=== PATIENT | female | born 1985 | race Caucasian/White ===

== ENCOUNTER → 2017-06-20 | Day surgery (SDC) | payer OTHER ==
[2017-06-05 14:29] VITALS: BMI 17.0
--- NOTE | 2017-06-05 15:15 | PAT Medication Instructions ---
Service Date Jun 05, 2017. Current Home Medication List Albuterol Hfa (Ventolin Hfa), 2-4 PUFFS INH Q6H PRN for Shortness of Breath Gabapentin (Neurontin), 100 MG PO BID Hydrocodon/Acetaminophen 7.5MG/300MG (Vicodin Es (7.5MG/300MG)), 1 TAB PO Q6 PRN for Pain Ibuprofen (Motrin), 400 MG PO Q6H PRN for Pain Ketorolac Tromethamine (Toradol), 10 MG PO TID PRN for Pain Midodrine (Midodrine HCl), 1 TAB PO BID Multiple Vitamin (Multi Vitamin), 1 TAB PO qa Naproxen (Aleve), 220 MG PO DAILY PRN for Pain Nitrofurantoin Monohyd Macrocr (Macrobid), 100 MG PO BID Pantoprazole (Protonix), 40 MG PO QAM Saccharomyces Boulardii (Probiotic), 2 TAB PO QAM Sertraline (Zoloft), 50 MG PO QAM Tamsulosin HCl (Tamsulosin HCl), 1 TAB PO HS Topiramate (Topamax), 150 MG PO BID Valacyclovir (Valtrex), 1 TAB PO QAM Medication Instructions For Your Scheduled Surgery - Check with surgeon for instructions: Ibuprofen (Motrin), 400 MG PO Q6H PRN for Pain Naproxen (Aleve), 220 MG PO DAILY PRN for Pain - Hold the following medications the morning of surgery: Saccharomyces Boulardii (Probiotic), 2 TAB PO QAM Multiple Vitamin (Multi Vitamin), 1 TAB PO qa - Take the following medications the morning of surgery with a sip of water: Topiramate (Topamax), 150 MG PO BID Valacyclovir (Valtrex), 1 TAB PO QAM Sertraline (Zoloft), 50 MG PO QAM Pantoprazole (Protonix), 40 MG PO QAM Nitrofurantoin Monohyd Macrocr (Macrobid), 100 MG PO BID. Hydrocodon/Acetaminophen 7.5MG/300MG (Vicodin Es (7.5MG/300MG)), 1 TAB PO Q6 PRN for Pain (okay to take up to 4 hours prior to surgery if needed) Albuterol Hfa (Ventolin Hfa), 2-4 PUFFS INH Q6H PRN for Shortness of Breath (if needed) Gabapentin (Neurontin), 100 MG PO BID Ketorolac Tromethamine (Toradol), 10 MG PO TID PRN for Pain (okay to take up to 4 hours prior to surgery if needed) Midodrine HCl - Take the following medications as scheduled the night before surgery: Topiramate (Topamax), 150 MG PO BID Tamsulosin HCl (Tamsulosin HCl), 1 TAB PO HS Nitrofurantoin Monohyd Macrocr (Macrobid), 100 MG PO BID Hydrocodon/Acetaminophen 7.5MG/300MG (Vicodin Es (7.5MG/300MG)), 1 TAB PO Q6 PRN for Pain i(if needed) Albuterol Hfa (Ventolin Hfa), 2-4 PUFFS INH Q6H PRN for Shortness of Breath (if needed) Gabapentin (Neurontin), 100 MG PO BID Ketorolac Tromethamine (Toradol), 10 MG PO TID PRN for Pain (if needed) Midodrine HCl If you have any questions please call us at [phone] or [phone] or [phone]
--- NOTE | 2017-06-05 16:08 | DIAGNOSTIC IMAGING REPORT ---
CHEST PREADMISSION(PA/LAT) CLINICAL HISTORY: Preoperative evaluation. COMPARISON STUDY: No previous studies for comparison. FINDINGS: No consolidation is identified. Pulmonary vascularity is normal. Cardiomediastinal silhouette is normal. There is no pneumothorax or pleural effusion. IMPRESSION: No acute cardiopulmonary findings. Electronically signed by: Felipe Ponce M.D. 06/05/2017 4:07 PM Dictated Date/Time: 06/05/2017 4:06 PM
[~2017-06-20] VITALS: Ht 157.5 cm; Wt 43.4 kg
[~2017-06-20] MED LIST: ACETAMINOPHEN 325 MG TAB PO PRN; ATROPINE SULFATE 0.1 MG/ML 5ML SYR IV PRN; CEFAZOLIN 2000 MG/60 ML D5W IV SCH; CIPR-255 PO; CONRAY 30% 150ML BOTTLE ONE; EpHEDrine SULFATE INJ 50 MG/ML AMP IV PRN; FENTANYL CITRATE INJ 50 MCG/1 ML 2 ML VIAL IV PRN; FLM4 PO; GABA-112 PO; HYDR-3714 PO; HYDROCODONE/ACETAMOPHEN 5/325MG TAB PO PRN; IBUP-1459 PO; KETO10TA PO; LACTATED RINGER'S 1000ML 1,000 ML IV SCH; MULT-1027 PO; NAPR1TAB9 PO; NITR-5 PO; ONDANSETRON INJ 2 MG/ML 2 ML VIAL IV PRN; OXYC-57 PO; OXYC1TAB3 PO; PANT40TA PO; PRMT25 PO; SACC250C11 PO; SERT50TA PO; SODIUM CHLORIDE 0.9% 1000ML 1,000 ML IV SCH; TAMSULOSIN HCL 0.4 MG CAP PO ONE; TOPI100T20 PO; VALA500T60 PO; VNTHFA/IN INH
[2017-06-20 06:31] VITALS: BP 92/56; PULSE 53; TEMP 36.7; O2SAT 100; Ht 157.5 cm; Wt 43.4 kg
--- NOTE | 2017-06-20 07:27 | History & Physical Bridge Note ---
H&P Re-Evaluation Bridge Note: I have examined the patient, reviewed the History & Physical and in the interval since the performance of the History & Physical I have noted the following changes of clinical significance: No changes noted
--- NOTE | 2017-06-20 08:34 | Discharge Instructions ---
Discharge Instructions Date of Service Jun 20, 2017. Admission Reason for Admission: Stones Discharge Discharge Diagnosis / Problem: stones Discharge Goals Goal(s): Decrease discomfort, Improve function, Increase independence, Improve disease control, Prevent Disease Progression Activity Recommendations Activity Limitations: resume your previous activity Lifting Limitations: none Exercise/Sports Limitations: none May Resume Sexual Activity: when tolerated Shower/Bathe: no limitations Driving or Machine Use: resume 1 day after discharge . Instructions / Follow-Up Instructions / Follow-Up Dr. Meraz's office will contact you to schedule your next procedure. Discharge Diet Recommended Diet: Regular Diet Procedures Procedures Performed: Cystoscopy, left ureteral dilation, attempted left Ureteroscopy, Retrograde pyelogram, stent placement Pending Studies Studies pending at discharge: no Medical Emergencies . Who to Call and When: Medical Emergencies: If at any time you feel your situation is an emergency, please call 911 immediately. . Non-Emergent Contact Non-Emergency issues call your: Urologist Call Non-Emergent contact if: you have a fever, temperature is above 101.5, your pain is not controlled, your pain is worsening . . "Provider Documentation" section prepared by Foreign Mccann. . VTE Core Measure Inpt VTE Proph given/why not?: Treatment not indicated [place] Drug Monitoring Program Drug Monitoring Findings: system not responding when I attempted to evaluate her medication history
--- NOTE | 2017-06-20 09:01 | [facility] Operative Report ---
Operative Report Operative Date Jun 20, 2017. Pre-Operative Diagnosis nephrolithiasis Post-Operative Diagnosis nephrolithiasis Procedure(s) Performed Cystoscopy, left ureteral dilation, attempted left Ureteroscopy, Retrograde pyelogram, stent placement 1Er40pm Surgeon Dr. Nabeel Meraz Software Implementation Project Manager Surgeon(s) none Estimated Blood Loss 0mL Findings Very narrow distal left ureter - no definitive fluoroscopic findings of a ureteral stone Specimens none per surgeon Drains [id number] Anesthesia Gen Complication(s) None Disposition Recovery Room / PACU Indications Symptomatic L ureteral and renal stones Description of Procedure Patient was identified in the preoperative holding area, appropriate informed consent reviewed and completed and the patient was transported to the operating suite. Upon arrival she received appropriate preoperative antibiotics in the form of Ancef. Adequate general anesthesia was achieved and she was placed in dorsal lithotomy position where she was sterilely prepped and draped in standard fashion. I begin the case by attempting to pass a 22 Nigerian cystoscope with 30 lens. Unfortunately her urethra would not accommodate this and required gentle dilation to facilitate the scope passage. Full bladder evaluation was then carried out. No evidence of tumor or other abnormality. Ureteral orifices were in orthotopic position. In turn my attention then to the left ureteral orifice. I cannulated with a sensor wire was advanced the kidney without difficulty. I then attempted to pass a 10 Nigerian double-lumen catheter. I was able to pass is approximately 3 cm into the ureter without difficulty before feeling resistance. There is no fluoroscopic findings suggestive stone in this location. I placed a second wire was advanced without difficulty. I then attempted to pass a semirigid ureteroscope. I was able to guide this to the same area resistance. Unfortunately I could not identify a stone in this area, but it appeared to have simple narrowing of the ureter. After I was unable to pass the semirigid scope, through this and attempted to pass a flexible scope. This also was unsuccessful with restriction at the same point. Before boarding the case, I attempted to pass a balloon dilator and gently dilated this area while simultaneously watching under fluoroscopic guidance to ensure I was not dilating stone. After the dilation, I attempted to repassed scope and met resistance in the same location. At that time I elected to place a stent and temporarily abort this case with a return in 1-2 weeks for final treatment. A 6 Nigerian by 24 cm double-J ureteral stent was placed without difficulty. There was a good curl in the kidney as well as the bladder. Bladder was decompressed and the patient reversed from anesthesia and taken to the PACU in stable condition. I attest to the content of the Intraoperative Record and any orders documented therein. Any exceptions are noted below.
--- NOTE | 2017-06-20 09:23 | Anesthesiology Progress Note ---
Anesthesia Post Op Note Date & Time Jun 20, 2017 at 09:23 Vital Signs Pain Intensity: 0 Vital Signs Past 12 Hours Date Time Temp Pulse Resp B/P (MAP) Pulse Ox O2 Delivery O2 Flow Rate FiO2 06/20/17 09:15 36.2 90 16 104/68 99 Room Air 06/20/17 09:05 36.2 70 16 112/68 99 Room Air 06/20/17 08:55 71 16 99/66 100 Oxymask 10 06/20/17 08:45 86 16 111/71 100 Oxymask 10 06/20/17 08:35 36.3 62 16 106/63 100 Oxymask 10 06/20/17 06:31 36.7 53 18 92/56 (68) 100 Room Air Notes Mental Status: alert / awake / arousable, participated in evaluation Pt Amnestic to Procedure: Yes Nausea / Vomiting: adequately controlled Pain: adequately controlled Airway Patency, RR, SpO2: stable & adequate BP & HR: stable & adequate Hydration State: stable & adequate Anesthetic Complications: no major complications apparent
[2017-06-20 09:25] VITALS: BP 112/70; PULSE 69; TEMP 37.1; O2SAT 99
[2017-06-20 09:55] VITALS: BP 113/63; PULSE 74; TEMP 36.5; O2SAT 100
[2017-06-20 10:25] VITALS: BP 109/60; PULSE 82; TEMP 36.5; O2SAT 97
== END | disposition home or self-care (01) ==
LOC: C.ACU 06-05 13:35
PROVIDERS: ATTEND Urology
DX: N20.1 Calculus of ureter (principal); N20.0 Calculus of kidney; J45.909 Unspecified asthma, uncomplicated; F17.200 Nicotine dependence, unspecified, uncomplicated; Z82.49 Family history of ischemic heart disease and other diseases of the circulatory system; Z83.3 Family history of diabetes mellitus; Z80.1 Family history of malignant neoplasm of trachea, bronchus and lung; Z79.899 Other long term (current) drug therapy; Z01.818 Encounter for other preprocedural examination

== ENCOUNTER 2017-06-22 12:52 | Emergency (ER) | payer OTHER ==
[~2017-06-22] VITALS: Ht 157.5 cm; Wt 42.8 kg
[~2017-06-22 12:52] MED LIST changes: -ACETAMINOPHEN 325 MG TAB PO PRN; -ATROPINE SULFATE 0.1 MG/ML 5ML SYR IV PRN; -CEFAZOLIN 2000 MG/60 ML D5W IV SCH; -CONRAY 30% 150ML BOTTLE ONE; -EpHEDrine SULFATE INJ 50 MG/ML AMP IV PRN; -FENTANYL CITRATE INJ 50 MCG/1 ML 2 ML VIAL IV PRN; -HYDROCODONE/ACETAMOPHEN 5/325MG TAB PO PRN; -LACTATED RINGER'S 1000ML 1,000 ML IV SCH; -NITR-5 PO; -ONDANSETRON INJ 2 MG/ML 2 ML VIAL IV PRN; -OXYC-57 PO; -OXYC1TAB3 PO; -SODIUM CHLORIDE 0.9% 1000ML 1,000 ML IV SCH; -TAMSULOSIN HCL 0.4 MG CAP PO ONE
[2017-06-22 13:03] VITALS: TEMP 36.7; Ht 157.5 cm; Wt 42.8 kg
[2017-06-22] MEDS ORDERED: SODIUM CHLORIDE 0.9% 1000ML 1,000 ML IV STA (13:19)
[2017-06-22] MEDS ORDERED: MoRPHine SULFATE 4 MG/ML 1 ML CARP\\VIAL IV STA ×2 (13:19→15:31)
[2017-06-22] MEDS ORDERED: ONDANSETRON INJ 2 MG/ML 2 ML VIAL IV STA (13:19)
--- NOTE | 2017-06-22 13:53 | EMERGENCY ROOM VISIT NOTE ---
History First contact with patient: 13:10 Chief Complaint: KIDNEY STONE Stated Complaint: KIDNEY STONES History of Present Illness The patient is a 32 year old female who presents to the Emergency Room via private vehicle accompanied by mother with complaints of "kidney stone". The patient states that she has had left flank pain, and had a stent placed in her left ureter on Monday. She states that since then she has had left flank pain , but now has acutely worsened, and she has bright red blood in her urine. She rates the left flank and left abdominal pain as an 8-9/10. It is been worsening since Monday. She notes that Dr. Meraz performed the stent placement. She states that she has another surgery scheduled for this Monday for further evaluation and management. She denies any fevers, chills, chance of . Review of Systems A complete 10-point Review of Systems was discussed with the patient, with pertinent positives and negatives listed in the History of Present Illness. All remaining Review of Systems questions can be considered negative unless otherwise specified. Past Medical/Surgical History Renal calculi, tubal ligation Family History No pertinent. Social History Smoking Status: Current Every Day Smoker Pt. lives locally Current/Historical Medications Scheduled Ciprofloxacin Hcl (Cipro), 500 MG PO BID Gabapentin (Neurontin), 100 MG PO BID Midodrine (Midodrine HCl), 1 TAB PO BID Multiple Vitamin (Multi Vitamin), 1 TAB PO qa Pantoprazole (Protonix), 40 MG PO QAM Saccharomyces Boulardii (Probiotic), 2 TAB PO QAM Sertraline (Zoloft), 50 MG PO QAM Tamsulosin HCl (Tamsulosin HCl), 1 TAB PO HS Topiramate (Topamax), 150 MG PO BID Valacyclovir (Valtrex), 1 TAB PO QAM Scheduled PRN Albuterol Hfa (Ventolin Hfa), 2-4 PUFFS INH Q6H PRN for Shortness of Breath Hydrocodon/Acetaminophen 7.5MG/300MG (Vicodin Es (7.5MG/300MG)), 1 TAB PO Q6 PRN for Pain Ibuprofen (Motrin), 400 MG PO Q6H PRN for Pain Naproxen (Aleve), 220 MG PO DAILY PRN for Pain Physical Exam Vital Signs Date Time Temp Pulse Resp B/P (MAP) Pulse Ox O2 Delivery O2 Flow Rate FiO2 10/5/17 15:34 72 16 93/65 100 Room Air 06/22/17 14:26 95 Room Air 06/22/17 14:01 65 06/22/17 13:03 36.7 87 18 111/73 99 Room Air Physical Exam VITAL SIGNS - Vital signs and nursing notes were reviewed. Stable. GENERAL - 32-year-old female appearing her stated age who is in no acute distress. Communicates well with provider and answers questions appropriately. SKIN - Without rashes. No petechial rashes. HEAD - NC/AT. EYES - Sclera anicteric. EARS - No deformities of external structures noted on gross examination bilaterally. NOSE - Midline and without cyanosis. No epistaxis or purulent drainage noted. MOUTH/OROPHARYNX - Without perioral cyanosis. LUNGS - Chest wall symmetric without accessory muscle use, intercostals retractions, or central cyanosis. Normal vesicular breath sounds CTA B/L. No wheezes, rales, or rhonchi appreciated. CARDIAC - RRR with S1/S2. No murmur, rubs, or gallops appreciated. ABDOMEN - Abdominal contour normal without pulsations or visible masses. BS normoactive all four quadrants. LEFT CVA TENDERNESS and left lower quadrant. No palpable masses, hepatosplenomegaly, or ascites noted. Medical Decision & Procedures ER Provider Diagnostic Interpretation: RENAL ULTRASOUND CLINICAL HISTORY: Left flank pain and hematuria. Stent placed Monday. COMPARISON STUDY: CT of the abdomen and pelvis May 31, 2017 and retrograde exam June 20, 2017. TECHNIQUE: Sonography of the kidneys and the urinary bladder was performed. FINDINGS: The right kidney measures 11.7 x 4.2 x 4.3 cm and the left measures 12.6 x 5.6 x 4 cm. There is no right hydronephrosis. Echogenic foci within each renal collecting system suggest bilateral renal calculi. The right ureteral jet was visualized. A left ureteral stent is noted. Distal aspect of the stent is within the urinary bladder and proximal aspect is at least within the left renal pelvis. There is mild to moderate left hydronephrosis which is diminished when compared to CT of May 31, 2017. Hypoechoic material is noted within the left renal pelvis as well as a moderate amount of hypoechoic material within the bladder without color flow. IMPRESSION: 1. Left ureteral stent in place. Mild to moderate left hydronephrosis which is diminished when compared to CT of May 31, 2017. 2. Small amount of hypoechoic material within the left renal pelvis and moderate amount of hypoechoic material within the bladder along the ureteral stent which likely reflects blood clot. 3. Bilateral nephrolithiasis. 4. Trace abdominal ascites. Electronically signed by: Felipe Ponce M.D. 06/22/2017 3:16 PM Dictated Date/Time: 06/22/2017 3:11 PM Laboratory Results 06/22/17 13:55 Red Blood Count 3.92, Mean Corpuscular Volume 98.0, Mean Corpuscular Hemoglobin 32.9, Mean Corpuscular Hemoglobin Concent 33.6, Mean Platelet Volume 10.1, Neutrophils (%) (Auto) 67.3, Lymphocytes (%) (Auto) 16.8, Monocytes (%) (Auto) 9.1, Eosinophils (%) (Auto) 6.3, Basophils (%) (Auto) 0.4, Neutrophils # (Auto) 4.56, Lymphocytes # (Auto) 1.14, Monocytes # (Auto) 0.62, Eosinophils # (Auto) 0.43, Basophils # (Auto) 0.03 06/22/17 13:55 Test 06/22/17 13:55 06/22/17 14:44 06/22/17 14:50 White Blood Count 6.79 K/uL (4.8-10.8) Red Blood Count 3.92 M/uL (4.2-5.4) Hemoglobin 12.9 g/dL (12.0-16.0) Hematocrit 38.4 % (37-47) Mean Corpuscular Volume 98.0 fL (80-100) Mean Corpuscular Hemoglobin 32.9 pg (25-34) Mean Corpuscular Hemoglobin Concent 33.6 g/dl (32-36) Platelet Count 198 K/uL (130-400) Mean Platelet Volume 10.1 fL (7.4-10.4) Neutrophils (%) (Auto) 67.3 % Lymphocytes (%) (Auto) 16.8 % Monocytes (%) (Auto) 9.1 % Eosinophils (%) (Auto) 6.3 % Basophils (%) (Auto) 0.4 % Neutrophils # (Auto) 4.56 K/uL (1.4-6.5) Lymphocytes # (Auto) 1.14 K/uL (1.2-3.4) Monocytes # (Auto) 0.62 K/uL (0.11-0.59) Eosinophils # (Auto) 0.43 K/uL (0-0.5) Basophils # (Auto) 0.03 K/uL (0-0.2) RDW Standard Deviation 48.5 fL (36.4-46.3) RDW Coefficient of Variation 13.5 % (11.5-14.5) Immature Granulocyte % (Auto) 0.1 % Immature Granulocyte # (Auto) 0.01 K/uL (0.00-0.02) Prothrombin Time 10.4 SECONDS (9.0-12.0) Prothromb Time International Ratio 1.0 (0.9-1.1) Activated Partial Thromboplast Time 27.5 SECONDS (21.0-31.0) Partial Thromboplastin Ratio 1.1 Urine Color YELLOW Urine Appearance CLOUDY (CLEAR) Urine pH 7.5 (4.5-7.5) Urine Specific [place] 1.024 (1.000-1.030) Urine Protein 3+ (NEG) Urine Glucose (UA) NEG (NEG) Urine Ketones NEG (NEG) Urine Occult Blood 2+ (NEG) Urine Nitrite NEG (NEG) Urine Bilirubin NEG (NEG) Urine Urobilinogen NEG (NEG) Urine Leukocyte Esterase MODERATE (NEG) Urine RBC >30 /hpf (0-4) Urine WBC >30 /hpf (0-5) Urine Epithelial Cells 0-5 /lpf (0-5) Urine Bacteria NEG (NEG) Anion Gap 7.0 mmol/L (3-11) Est Creatinine Clear Calc Drug Dose 69.6 ml/min Estimated GFR () 116.8 Estimated GFR (Non- 100.7 BUN/Creatinine Ratio 11.7 (10-20) Calcium Level 8.9 mg/dl (8.5-10.1) Total Bilirubin 0.3 mg/dl (0.2-1) Alanine Aminotransferase (ALT/SGPT) 16 U/L (12-78) Alkaline Phosphatase 60 U/L (45-117) Creatine Kinase MB < 0.5 ng/ml (0.5-3.6) Creatine Kinase MB Ratio (0-3.0) Total Protein 6.9 gm/dl (6.4-8.2) Albumin 3.9 gm/dl (3.4-5.0) Globulin 3.0 gm/dl (2.5-4.0) Albumin/Globulin Ratio 1.3 (0.9-2) Medications Administered Medications (Trade) Dose Ordered Sig/Davi Route Start Time Stop Time Status Last Admin Dose Admin Morphine Sulfate (MoRPHine SULFATE INJ) 4 mg NOW STAT IV 06/22/17 13:19 06/22/17 13:21 DC 06/22/17 13:50 4 MG Ondansetron HCl (Zofran Inj) 4 mg NOW STAT IV 06/22/17 13:19 06/22/17 13:21 DC 06/22/17 13:49 4 MG Sodium Chloride 1,000 ml @ 999 mls/hr Q1H1M STAT IV 06/22/17 13:19 06/22/17 14:19 DC 06/22/17 13:19 999 MLS/HR Morphine Sulfate (MoRPHine SULFATE INJ) 4 mg NOW STAT IV 06/22/17 15:31 06/22/17 15:32 DC 06/22/17 15:44 4 MG Medical Decision Patient was seen and evaluated as above. She presents to us today with left flank pain and hematuria. She had a stent placed by urology on Monday. She has been doing well except the pain and blood has increased in the urine. Ultrasound reveals stent placement and some blood clots. I consult to urology, and spoke with Sussy Cloud who notes that she also spoke with Dr. Liz. Decision was made that the stent would continue to have to dilate the ureter, and that the surgery would not be able to be performed before Monday, which is the scheduled date. Patient was informed upon this, and offered inpatient admission for her pain management as discussed with Sussy Cloud. Patient noted that she would like to go home, and will return with any worsening symptoms. I believe this is reasonable. No concerning leukocytosis or anemia. Coags normal. Patient's metabolic panel reveals no evidence of kidney or liver failure. Patient has a tubal ligation. Urine reveals 2+ blood, red blood cells and white blood cells, but I do not suspect infection at this time. There are no nitrites. Culture pending. Patient was educated upon management , educated upon worrisome symptoms in which to return, had questions answered prior to discharge, and was discharged home in good condition. In evaluation treatment this patient following differential diagnoses were obtained: Renal calculi, pyelonephritis , among others. Impression Primary Impression: Left flank pain Additional Impression: Renal colic Departure Information Dispostion Home / Self-Care Condition GOOD Prescriptions Oxycodone Ir (Roxicodone Ir) 5 Mg Tab 1-2 TAB PO Q4H Y for Pain, #15 TAB For Initial Treatment Prov: Michael Gomez PA-C 06/22/17 Referrals Kevin Nuñez M.D. (PCP) Patient Instructions My [facility] Additional Instructions You have been treated in the Emergency Department your left flank pain and blood in the urine. Laboratory results and imaging studies have ruled out any emergent causes for your pain which would warrant admission or surgery today. You have been prescribed oxycodone immediate release to be used for pain control. This is a narcotic medication. You cannot drive or consume alcohol while on this medicine. This medicine should only be used for pain that cannot be controlled with [id number] pain medicines. For pain control, you can use the following [id number] medicines : - Regular strength (325mg/tab) Tylenol (acetaminophen) 2 tabs every 4-6 hours as needed. Do not exceed 12 tablets in a 24 hour period. Avoid taking more than 3 grams (3000 mg) of Tylenol per day. This includes any other sources of acetaminophen you may take on a regular basis. - Regular strength (200 mg/tab) Advil (ibuprofen) 1-2 tabs every 4-6 hours as needed. Do not exceed a dose of 3200 mg per day. Drink plenty of water and stay well hydrated. As with any trip to the Emergency Department, you should follow-up with your Primary Care Provider from today's visit. Please keep your scheduled surgical appointment for Monday. Return to the emergency department if your symptoms persist despite treatment plan outlined above or if the following symptoms occur: increased fevers, chills , worsening nausea/vomiting, blood in your stool or urine. Please return with any new/concerning symptoms. Problem Qualifiers
[2017-06-22 14:15] LABS: PARTIAL THROMBOPLASTIN RATIO 1.1; PROTHROMBIN TIME (PATIENT) 10.4 SECONDS (9.0-12.0)
[2017-06-22 14:21] LABS: BASO % 0.4 %; BASO ABS # 0.03 K/uL (0-0.2); COMPLETE YES; EOS % 6.3 %; HEMATOCRIT 38.4 % (37-47); IG% 0.1 %; LYMPH % 16.8 %; LYMPH ABS # 1.14 K/uL (1.2-3.4); MEAN CORPUSCULAR HEMOGLOBIN 32.9 pg (25-34); MEAN CORPUSCULAR HGB CONC 33.6 g/dl (32-36); MEAN PLATELET VOLUME 10.1 fL (7.4-10.4); MONO % 9.1 %; NEUT % 67.3 %; PLATELET COUNT 198 K/uL (130-400); RED BLOOD COUNT 3.92 M/uL (4.2-5.4); WHITE BLOOD COUNT 6.79 K/uL (4.8-10.8)
[2017-06-22 14:26] VITALS: O2SAT 95
[2017-06-22 14:52] LABS: BLOOD UREA NITROGEN 9 mg/dl (7-18); CREATININE 0.77 mg/dl (0.60-1.20); GLUCOSE 86 mg/dl (70-99)
[2017-06-22 14:53] LABS: ALB/GLOB RATIO 1.3 (0.9-2); ALKALINE PHOSPHATASE 60 U/L (45-117); ALT/SGPT 16 U/L (12-78); BUN/CREATININE RATIO 11.7 (10-20); CALCIUM 8.9 mg/dl (8.5-10.1); CARBON DIOXIDE 23 mmol/L (21-32); CHLORIDE 114 mmol/L (98-107); SODIUM 144 mmol/L (136-145)
--- NOTE | 2017-06-22 15:18 | DIAGNOSTIC IMAGING REPORT ---
RENAL ULTRASOUND CLINICAL HISTORY: Left flank pain and hematuria. Stent placed Monday. COMPARISON STUDY: CT of the abdomen and pelvis May 31, 2017 and retrograde exam June 20, 2017. TECHNIQUE: Sonography of the kidneys and the urinary bladder was performed. FINDINGS: The right kidney measures 11.7 x 4.2 x 4.3 cm and the left measures 12.6 x 5.6 x 4 cm. There is no right hydronephrosis. Echogenic foci within each renal collecting system suggest bilateral renal calculi. The right ureteral jet was visualized. A left ureteral stent is noted. Distal aspect of the stent is within the urinary bladder and proximal aspect is at least within the left renal pelvis. There is mild to moderate left hydronephrosis which is diminished when compared to CT of May 31, 2017. Hypoechoic material is noted within the left renal pelvis as well as a moderate amount of hypoechoic material within the bladder without color flow. IMPRESSION: 1. Left ureteral stent in place. Mild to moderate left hydronephrosis which is diminished when compared to CT of May 31, 2017. 2. Small amount of hypoechoic material within the left renal pelvis and moderate amount of hypoechoic material within the bladder along the ureteral stent which likely reflects blood clot. 3. Bilateral nephrolithiasis. 4. Trace abdominal ascites. Electronically signed by: Felipe Ponce M.D. 06/22/2017 3:16 PM Dictated Date/Time: 06/22/2017 3:11 PM
[2017-06-22 15:29] LABS: MANUAL MICROSCOPIC REQUIRED? YES; REVIEW REQ? NO; URINE APPEARANCE CLOUDY (CLEAR); URINE BILIRUBIN NEG (NEG); URINE COLOR YELLOW; URINE NITRITE NEG (NEG); URINE PH 7.5 (4.5-7.5); URINE SPECIFIC GRAVITY 1.024 (1.000-1.030); UROBILINOGEN NEG (NEG)
[2017-06-22 15:35] LABS: SULFASALICYLIC ACID POS (NEG); URINE BACTERIA NEG (NEG); URINE RBC >30 /hpf (0-4); URINE WBC >30 /hpf (0-5)
[2017-06-22 15:36] LABS: ZZUR CULT IF INDIC CLEAN CATCH YES
[2017-06-22] MEDS ORDERED: OXYC1TAB3 PO (15:56)
[2017-06-22 16:15] VITALS: BP 96/68; PULSE 76; O2SAT 100
[2017-06-22 16:30] LABS: POTASSIUM 3.5 mmol/L (3.5-5.1)
[2017-06-22 16:39] LABS: MAGNESIUM 1.9 mg/dl (1.8-2.4)
[2017-06-22 17:24] LABS: PREG INTERNAL NEGATIVE QC NEG CLEAR BACKGROUND; PREG INTERNAL POSITIVE QC POS CONTROL LINE
[2017-06-23] MEDS ORDERED: HYDR-3714 PO (08:45)
[2017-06-27] MEDS ORDERED: OXYC-57 PO ×2 (12:36→13:22)
[2017-06-27] MEDS ORDERED: CIPR-255 PO (13:22)
== END 2017-06-22 16:15 | disposition home or self-care (01) ==
LOC: C.EDB 12:55 → C.EDC 16:15
DX: R10.9 Unspecified abdominal pain (principal); N23 Unspecified renal colic; F17.200 Nicotine dependence, unspecified, uncomplicated

== ENCOUNTER → 2017-06-27 | Day surgery (SDC) | payer OTHER ==
[2017-06-23 08:45] VITALS: BMI 18.0
[~2017-06-27] VITALS: Ht 152.4 cm; Wt 43.2 kg
[~2017-06-27] MED LIST changes: +ATROPINE SULFATE 0.1 MG/ML 5ML SYR IV PRN; +CIPROFLOXACIN / D5W 400 MG IV SCH; +CONRAY 30% 150ML BOTTLE ONE; +DEXAMETHASONE SOD INJ 4 MG/ML VIAL ONE; +EpHEDrine SULFATE INJ 50 MG/ML AMP IV PRN; +FENTANYL CITRATE INJ 50 MCG/1 ML 2 ML VIAL IV PRN; +FENTANYL CITRATE INJ 50 MCG/1 ML 2 ML VIAL ONE; -KETO10TA PO; +LACTATED RINGER'S 1000ML 1,000 ML IV SCH; +LIDOCAINE HCL 2% 2 ML VIAL (20MG/ML) ONE; +MIDAZOLAM HCL 1 MG/ML 2ML VIAL ONE; +ONDANSETRON INJ 2 MG/ML 2 ML VIAL IV PRN; +ONDANSETRON INJ 2 MG/ML 2 ML VIAL ONE; +OXYC-57 PO; +OXYCODONE/ACETAMINOPHEN 5-325 TAB PO PRN; +PROPOFOL IV EMULSION 10 MG/ML 20 ML VIAL IV ONE
[2017-06-27 12:08] VITALS: BP 103/62; PULSE 57; TEMP 36.9; O2SAT 100; Ht 152.4 cm; Wt 43.2 kg
--- NOTE | 2017-06-27 13:21 | History and Physical ---
History & Physical Date Jun 27, 2017. Chief Complaint L ureteral and renal stones History of Present Illness The patient is a 32 year old female with complaints of left sided nephrolithiasis - seen recently for attempted left ureteroscopy and laser lithotripsy, unfortunately, I was unable to advance a scope into the ureter and elected to leave a stent to passively dilate the ureter. We are now returning for definitive treatment in the form of ureteroscopy, laser lithotripsy and stent exchange. Past Medical/Surgical History cysto, stent placement Additional History Hepatic Disease: No Endocrine Disorder: No Kidney Disease: No Hypertension: No Heart Disease: No Bleeding Tendencies: No Infectious Diseases: No Other: poor dentition Allergies Coded Allergies: NO KNOWN DRUG ALLERGIES (Verified Allergy, Mild, ., 06/27/17) Latex (Verified Allergy, Unknown, hives,swelling, 06/27/17) Home Medications Scheduled Gabapentin (Neurontin), 100 MG PO BID Midodrine (Midodrine HCl), 1 TAB PO BID Multiple Vitamin (Multi Vitamin), 1 TAB PO QAM Pantoprazole (Protonix), 40 MG PO QAM Saccharomyces Boulardii (Probiotic), 2 TAB PO QAM Sertraline (Zoloft), 50 MG PO QAM Tamsulosin HCl (Tamsulosin HCl), 1 TAB PO HS Topiramate (Topamax), 150 MG PO BID Valacyclovir (Valtrex), 1 TAB PO QAM Scheduled PRN Albuterol Hfa (Ventolin Hfa), 2-4 PUFFS INH Q6H PRN for Shortness of Breath Ibuprofen (Motrin), 400 MG PO Q6H PRN for Pain Naproxen (Aleve), 220 MG PO DAILY PRN for Pain Oxycodone/Acetaminophen 5MG/325MG (Percocet 5MG/325MG), 1 TABLET PO Q6H PRN for Pain Physical Examination Skin: warm/dry Eyes: normal inspection ENT: normal ENT inspection Head: normocephalic Neck: supple Respiratory/Chest: lungs clear Cardiovascular: regular rate, rhythm, no edema Abdomen / GI: normal bowel sounds Back: normal inspection Extremities: normal inspection Neurologic/Psych: no motor/sensory deficits, alert, oriented x 3 Plan of Treatment Cysto, ureteroscopy, laser lithotripsy, stent exchange (left)
--- NOTE | 2017-06-27 13:24 | Discharge Instructions ---
Discharge Instructions Date of Service Jun 27, 2017. Admission Reason for Admission: Stones Discharge Discharge Diagnosis / Problem: stones Discharge Goals Goal(s): Decrease discomfort, Improve function, Increase independence, Improve disease control, Prevent Disease Progression Activity Recommendations Activity Limitations: resume your previous activity Lifting Limitations: none Exercise/Sports Limitations: none May Resume Sexual Activity: when tolerated Shower/Bathe: no limitations Driving or Machine Use: resume 1 day after discharge . Instructions / Follow-Up Instructions / Follow-Up Please come to Dr. Meraz's office on , 06/29/17 - at 10AM to have your stent removed. Discharge Diet Recommended Diet: Regular Diet Pending Studies Studies pending at discharge: no Work Instructions Return To Work: 3 days Medical Emergencies . Who to Call and When: Medical Emergencies: If at any time you feel your situation is an emergency, please call 911 immediately. . Non-Emergent Contact Non-Emergency issues call your: Urologist Call Non-Emergent contact if: you have a fever, temperature is above 101.5, your pain is not controlled, your pain is worsening . . "Provider Documentation" section prepared by [employer] M[employer]ann. . VTE Core Measure Inpt VTE Proph given/why not?: Treatment not indicated [place] Drug Monitoring Program Search Results: patient reviewed within database (numerous rx's recently - very limited course of meds given now secondary to today's surgery)
--- NOTE | 2017-06-27 14:17 | [facility] Operative Report ---
Operative Report Operative Date Jun 27, 2017. Pre-Operative Diagnosis Left ureteral and renal stones Post-Operative Diagnosis Left ureteral and renal stones Procedure(s) Performed Cystoscopy, Left Urteroscopy, Ureteral Dilation, Laser Lithotripsy, Left Stent Exchange ([id number]) Surgeon Dr. Meraz Fitness Sales Consultant Surgeon(s) none Estimated Blood Loss 0ML Findings L ureteral stones (several); 2 small renal stones Specimens none per surgeon Drains [id number] stent with string Anesthesia Gen Complication(s) None Disposition Recovery Room / PACU (stable) Indications symptomatic L ureteral stones Description of Procedure Patient was identified in the preoperative holding area, appropriate informed consent reviewed and completed, and the patient was transported to the operating suite. Upon arrival she received appropriate preoperative antibiotics in the form of ciprofloxacin. Adequate general anesthesia was achieved, and the patient was placed in dorsal lithotomy position where she was sterilely prepped and draped in standard fashion. I attempted to pass a 22 Barbadian cystoscope however her urethra would not accommodate this. Subsequently performed a dilation of her urethra to 26 Barbadian. This was accomplished using female urethral sounds. Scope subsequently passed easily and a full bladder evaluation was completed with a 30 and 70 lens. She had no mucosal abnormalities. Ureteral orifices were in orthotopic position. A ureteral stent was seen protruding from the left ureteral orifice. I grasped the distal end of the stent and withdrew to the urethral meatus. I intubated the stent with a sensor wire which was advanced the kidney without difficulty. Stent was removed and a 10 Barbadian double-lumen catheter was placed over the safety wire. A second wire was introduced into the kidney. After removing the 10 Barbadian double-lumen catheter, I reentered the bladder with a semirigid ureteroscope and gently guided this into the distal left ureter. Proximal 3cm above the bladder, I encountered 3 small stones. I was able to irrigate the stones free of the ureter. Several other stones were seen several centimeters higher and the ureter. I was able to irrigate the stones free of the ureter without utilizing a laser. After clearing the entire ureter to the UPJ, I withdrew the ureteroscope and repassed a flexible ureteroscope in the kidney. A full renoscopy was carried out. She had 2 small flecks in the midpole into small flecks in the lower pole. Utilizing a 200 fiber I fractured these into smaller pieces. I performed a repeat renoscopy and saw no other retained stones. Careful exit ureteroscopy revealed a clear ureter without inflammation or residual stone. A [id number] double-J ureteral stent was placed over the existing wire with a good curl seen in the bladder as well as the kidney. Lateral was decompressed and the case concluded. String was left attached to the stent and this was fixed to her inner left thigh. She was extubated and taken to the PACU in stable condition I attest to the content of the Intraoperative Record and any orders documented therein. Any exceptions are noted below.
--- NOTE | 2017-06-27 14:32 | Anesthesiology Progress Note ---
Anesthesia Post Op Note Date & Time Jun 27, 2017 at 14:32 Vital Signs Pain Intensity: 0 Vital Signs Past 12 Hours Date Time Temp Pulse Resp B/P (MAP) Pulse Ox O2 Delivery O2 Flow Rate FiO2 06/27/17 14:14 36.1 90 16 112/83 98 Oxymask 10 06/27/17 12:08 36.9 57 16 103/62 (76) 100 Room Air Notes Mental Status: alert / awake / arousable, participated in evaluation Pt Amnestic to Procedure: Yes Nausea / Vomiting: adequately controlled Pain: adequately controlled Airway Patency, RR, SpO2: stable & adequate BP & HR: stable & adequate Hydration State: stable & adequate Anesthetic Complications: no major complications apparent
[2017-06-27 15:00] VITALS: BP 108/67; PULSE 66; TEMP 36.5; O2SAT 98
[2017-06-27 15:30] VITALS: BP 112/74; PULSE 61; O2SAT 98
[2017-06-27 16:00] VITALS: BP 103/64; PULSE 61; TEMP 36.5; O2SAT 99
== END | disposition home or self-care (01) ==
LOC: C.ACU 11:38
PROVIDERS: ATTEND Urology
DX: N20.1 Calculus of ureter (principal); N20.0 Calculus of kidney; J45.909 Unspecified asthma, uncomplicated; I10 Essential (primary) hypertension; F17.200 Nicotine dependence, unspecified, uncomplicated; F41.9 Anxiety disorder, unspecified; F32.9 Major depressive disorder, single episode, unspecified; Z68.1 Body mass index [BMI] 19.9 or less, adult; Z91.040 Latex allergy status

== ENCOUNTER → 2017-06-29 | Outpatient (CLI) | payer OTHER ==
[~2017-06-29] MED LIST changes: +ACET325T96 PO; -ATROPINE SULFATE 0.1 MG/ML 5ML SYR IV PRN; -CIPROFLOXACIN / D5W 400 MG IV SCH; -CONRAY 30% 150ML BOTTLE ONE; -DEXAMETHASONE SOD INJ 4 MG/ML VIAL ONE; -EpHEDrine SULFATE INJ 50 MG/ML AMP IV PRN; -FENTANYL CITRATE INJ 50 MCG/1 ML 2 ML VIAL IV PRN; -FENTANYL CITRATE INJ 50 MCG/1 ML 2 ML VIAL ONE; -HYDR-3714 PO; -LACTATED RINGER'S 1000ML 1,000 ML IV SCH; -LIDOCAINE HCL 2% 2 ML VIAL (20MG/ML) ONE; -MIDAZOLAM HCL 1 MG/ML 2ML VIAL ONE; -ONDANSETRON INJ 2 MG/ML 2 ML VIAL IV PRN; -ONDANSETRON INJ 2 MG/ML 2 ML VIAL ONE; -OXYCODONE/ACETAMINOPHEN 5-325 TAB PO PRN; -PROPOFOL IV EMULSION 10 MG/ML 20 ML VIAL IV ONE
--- NOTE | 2017-06-29 08:39 | DIAGNOSTIC IMAGING REPORT ---
[facility] CLINICAL HISTORY: Nephrolithiasis. FINDINGS: An AP supine abdominal radiograph is correlated with abdominal CT dated 05/31/2017. A left ureteral stent is in place. No calcifications are seen along the course of the stent. No left renal calculi are identified. The left renal shadow is obscured by overlying bowel contents. There are 2 small nonobstructing calculi projecting over the lower pole of the right kidney. No calcifications project along the course the right ureter. Phleboliths are noted in the pelvis. There is a nonobstructed abdominal bowel gas pattern. The bony structures appear intact. IMPRESSION: 1. A left ureteral stent is in place. No calcifications are seen along the course of the stent. 2. There are 2 small nonobstructing right renal calculi identified. 3. No calcifications are seen projecting over the left kidney which is largely obscured by overlying bowel contents. Electronically signed by: Zachariah Cosby M.D. 06/29/2017 8:37 AM Dictated Date/Time: 06/29/2017 8:34 AM
== END | disposition home or self-care (01) ==
LOC: C.RAD 08:11
PROVIDERS: ATTEND Urology
DX: N20.0 Calculus of kidney (principal); Z96.0 Presence of urogenital implants

== ENCOUNTER 2017-07-02 06:09 | Emergency (ER) | payer OTHER ==
[~2017-07-02] VITALS: Ht 157.5 cm; Wt 43.0 kg
[~2017-07-02 06:09] MED LIST changes: -ACET325T96 PO
[2017-07-02 06:27] VITALS: TEMP 37.1; Ht 157.5 cm; Wt 43.0 kg
[2017-07-02] MEDS ORDERED: NSS + 20MEQ KCL 1000ML 1,000 ML IV SCH (06:45)
--- NOTE | 2017-07-02 07:06 | Medical Consult ---
Consultation Date of Consultation: Jul 02, 2017. Attending Physician: Reason for Consultation: Flank pain Left History of Present Illness 41 y/o F Hx hypotension. Pt recently had a stent placed for an obstructing L renal calculus. The stent was removed 3 days prior. Since that time she has had persistent pain in her L flank. She presented to the ER at [place]. A CT scan was obtained showing moderate L hydro and air within the upper pole calyx. The findings are consistent with her recent procedure and stone passage. The pt was transferred to the ER at [facility] as it was felt she may require urology evaluation. On review of records, labs, imaging and following discussion with urology and pt evaluation, she will likely be discharged for outpt f/u. Past Medical/Surgical History Medical Problems: (1) Hypotension - requires Midodrine - idiopathic (2) Renal colic Status: Acute Family History Noncontributory Social History Pt smokes a pack daily - she does not drink - she is employed at [employer] Smoking Status: Current Every Day Smoker Allergies Coded Allergies: NO KNOWN DRUG ALLERGIES (Verified Allergy, Mild, ., 06/27/17) Latex (Verified Allergy, Unknown, hives,swelling, 06/27/17) Current Inpatient Medications Current Inpatient Medications Medications (Trade) Dose Ordered Sig/Davi Route Start Time Stop Time Status Last Admin Dose Admin Potassium Chloride/Sodium Chloride 1,000 ml @ 200 mls/hr Q5H IV 07/02/17 06:45 08/01/17 06:44 UNV Review of Systems Constitutional: No fever, No chills, No sweats Eyes: No worsening of vision ENT: No hearing loss, No unusual epistaxis, No nasal symptoms Respiratory: No cough, No sputum, No wheezing Cardiovascular: No chest pain, No orthopnea, No PND Abdomen: No pain, No nausea, No vomiting Musculoskeletal: + problem reported (L flanks pain), No joint pain Genitourinary - Female: No dysuria Neurologic: No memory loss, No paralysis, No weakness Psychiatric: No depression symptoms Endocrine: No fatigue Hematologic / Lymphatic: No abnormal bleeding/bruising Integumentary: No rash Allergic / Immunologic: No environmental allergies Physical Exam Date Time Temp Pulse Resp B/P (MAP) Pulse Ox O2 Delivery O2 Flow Rate FiO2 07/02/17 06:27 37.1 50 20 110/66 98 Room Air General Appearance: WD/WN, no apparent distress Head: normocephalic Eyes: normal inspection ENT: normal ENT inspection, pharynx normal Neck: supple, no JVD Respiratory/Chest: chest non-tender, lungs clear, normal breath sounds Cardiovascular: regular rate, rhythm, no edema, no gallop Abdomen/GI: normal bowel sounds, non tender, soft Back: + left CVA tenderness (Minimal to palpation) Extremities/Musculoskelatal: normal inspection, no calf tenderness, normal capillary refill Neurologic/Psych: guest service host II-XII nml as tested, no motor/sensory deficits, alert, oriented x 3 Skin: normal color, warm/dry, no rash Assessment & Plan 41 y/o F Hx hypotension. Pt recently had a stent placed for an obstructing L renal calculus. The stent was removed 3 days prior. Since that time she has had persistent pain in her L flank. She presented to the ER at [place]. A CT scan was obtained showing moderate L hydro and air within the upper pole calyx. The findings are consistent with her recent procedure and stone passage. The pt was transferred to the ER at [facility] as it was felt she may require urology evaluation. On review of records, labs, imaging and following discussion with urology and pt evaluation, she will likely be discharged for outpt f/u. The pt's UA is equivocal and she has not had fevers/rigors or nausea and vomiting which may preclude DC Pt has been prescribed a course of Omnicef She received an initial dose of Ceftriaxone at [place] She was provided with a short course of narcotics pending follow-up in the Urlogy office which will be arranged by case management She is instructed to return to the hospital with nausea/vomiting, fevers/rigors or intractable pain. The above was discussed with the Pt, Urology and case management prior to DC
[2017-07-02] MEDS ORDERED: ACET325T96 PO (07:19)
[2017-07-02 07:46] VITALS: BP 119/73; PULSE 53; O2SAT 100
== END 2017-07-02 07:46 | disposition home or self-care (01) ==
LOC: EDBD 06:09 → C.EDB 06:10
DX: N23 Unspecified renal colic (principal); I95.9 Hypotension, unspecified; Z98.890 Other specified postprocedural states; Z82.49 Family history of ischemic heart disease and other diseases of the circulatory system; F17.200 Nicotine dependence, unspecified, uncomplicated

== ENCOUNTER → 2017-10-11 | Outpatient (CLI) | payer OTHER ==
[~2017-10-11] MED LIST changes: +ACET325T96 PO; -OXYC-57 PO
== END | disposition home or self-care (01) ==
LOC: C.LABSPEC 17:13
PROVIDERS: ATTEND Urology
DX: N20.0 Calculus of kidney (principal)

== ENCOUNTER → 2017-12-11 | Outpatient (CLI) | payer OTHER ==
[~2017-12-11] MED LIST changes: +ACET-1693 PO; -ACET325T96 PO
--- NOTE | 2017-12-11 11:25 | DIAGNOSTIC IMAGING REPORT ---
RENAL ULTRASOUND CLINICAL HISTORY: Nephrolithiasis. COMPARISON STUDY: Renal ultrasound June 18, 2017 and KUB June 29, 2017. CT of the abdomen and pelvis May 31, 2017. TECHNIQUE: Sonography of the kidneys and the urinary bladder was performed. FINDINGS: The right kidney measures 11.5 x 4.2 x 4.4 cm and the left measures 12.7 x 5.4 x 4.2 cm. There is no hydronephrosis. Renal echogenicity, size and cortical thickness are normal. Multiple bilateral renal calculi measure up to 6 mm. There is debris within the bladder. Both ureteral jets were identified. IMPRESSION: 1. No hydronephrosis. 2. Bilateral nephrolithiasis. 3. Apparent debris within the bladder which could be correlated with urinalysis. Electronically signed by: Felipe Ponce M.D. 12/11/2017 11:24 AM Dictated Date/Time: 12/11/2017 11:22 AM
== END | disposition home or self-care (01) ==
LOC: C.ULTR 10:49
PROVIDERS: ATTEND Urology
DX: N20.0 Calculus of kidney (principal)

== ENCOUNTER → 2017-12-20 | Outpatient (CLI) | payer OTHER ==
[2017-12-20 15:22] LABS: POTASSIUM RANDOM URINE 52.3 mEq/L
== END | disposition home or self-care (01) ==
LOC: C.LAB1850 10:57
PROVIDERS: ATTEND Internal Medicine Nephrology
DX: N20.0 Calculus of kidney (principal); E55.9 Vitamin D deficiency, unspecified

== ENCOUNTER → 2018-01-31 | Outpatient (CLI) | payer OTHER ==
--- NOTE | 2018-01-31 15:53 | DIAGNOSTIC IMAGING REPORT ---
[facility] CLINICAL HISTORY: N20.0 Nephrolithiasis COMPARISON STUDY: 06/29/2017 FINDINGS: There are multiple punctate lower pole right renal calculi. There is no pathologic bowel dilatation. There is been interval removal of the left-sided nephroureteral stent. The left renal shadow is largely obscured by overlying bowel gas and fecal material. There are a few equivocal punctate calculi. Pelvic basin calcifications remain stable and likely represent phleboliths. IMPRESSION: 1. No evidence of pathologic bowel dilatation 2. Suspected bilateral nephrolithiasis 3. Interval removal of the left-sided nephroureteral stent Electronically signed by: Vincenzo Bahena M.D. 01/31/2018 3:52 PM Dictated Date/Time: 01/31/2018 3:50 PM
== END | disposition home or self-care (01) ==
LOC: C.RAD 15:19
PROVIDERS: ATTEND Nurse Practitioner Family
DX: N20.0 Calculus of kidney (principal)

== ENCOUNTER → 2018-01-31 | Outpatient (CLI) | payer OTHER | END | disposition home or self-care (01) | LOC: C.LABSPEC 10:22 | PROVIDERS: ATTEND Urology | DX: N39.0 Urinary tract infection, site not specified (principal) ==